=== PATIENT | male | born 1965 | race African-American/Black ===

== ENCOUNTER 2020-11-15 05:52 | Inpatient (IN) ==
[2020-11-15] MEDS ORDERED: ONDANSETRON ODT 4 MG TABLET PO STA (06:26)
[2020-11-15] MEDS ORDERED: ONDANSETRON ODT 4 MG TABLET PO ONE (06:28)
[2020-11-15 07:56] LABS: Basophils % 0.5 % (0.0-0.8); Eosinophils # 0.3 10*3/uL (0.0-0.87); Eosinophils % 6.7 % (0.00-10.9); Immature Granulocytes % 0.3 %; Immature Granulocytes Absolute 0.01 #; Lymphocytes # 0.4 10*3/uL (1.4-4.0); Mean Corpuscular HGB Conc 32.3 GM/DL (32-36); Mean Corpuscular Volume 87.2 FL (87-102); Mean Platelet Volume 11.9 FL (9.6-12.0); Monocytes % 6.4 % (1.7-12.7); Neutrophils % 75.1 % (38.7-73.9); Platelet Count 136 T/CUMM (130-400); Red Blood Count 1.88 MC/CUMM (3.8-5.5); Red Cell Distribution Width 15.4 % (9.3-17.3); White Blood Count 3.9 T/CUMM (4-12)
[2020-11-15 08:05] LABS: Hemoglobin 5.3 GM/DL (14.0-18.0)
[2020-11-15 08:06] LABS: Hematocrit 16.4 VOL% (42.0-52.0)
[2020-11-15 08:09] LABS: Calcium 8.4 MG/DL (8.5-10.1); Osmolality,Calculated 295.4 MOS/KG (273-304)
[2020-11-15 08:18] LABS: Hypochromasia 2+; Microcytosis 1+; Ovalocytes Slight; Platelet Estimate Normal
[2020-11-15] MEDS ORDERED: GLUCAGON 1 MG VIAL IM PRN (09:13)
[2020-11-15] MEDS ORDERED: DEXTROSE 50% 25 GM/50 ML VIAL IV PRN (09:13)
[2020-11-15] MEDS ORDERED: ACETAMINOPHEN 325 MG TABLET PO PRN (09:13)
[2020-11-15] MEDS ORDERED: SODIUM CHLORIDE 0.9% 1,000 ML IV PRN (09:15)
[2020-11-15] MEDS ORDERED: DOCUSATE SODIUM 100 MG CAPSULE PO PRN (09:15)
[2020-11-15] MEDS ORDERED: INFLUENZA VIRUS VACCINE 0.5 ML SYRINGE IM ONE (13:56)
[2020-11-15 13:58] LABS: Basophils % 0.3 % (0.0-0.8); Eosinophils # 0.3 10*3/uL (0.0-0.87); Eosinophils % 7.6 % (0.00-10.9); Hematocrit 19.1 VOL% (42.0-52.0); Immature Granulocytes % 0.6 %; Immature Granulocytes Absolute 0.02 #; Lymphocytes # 0.4 10*3/uL (1.4-4.0); Lymphocytes % 11.6 % (21.2-54.2); Mean Corpuscular HGB Conc 31.4 GM/DL (32-36); Mean Corpuscular Volume 90.1 FL (87-102); Monocytes % 5.5 % (1.7-12.7); Neutrophils % 74.4 % (38.7-73.9); Platelet Count 149 T/CUMM (130-400); Red Blood Count 2.12 MC/CUMM (3.8-5.5); Red Cell Distribution Width 15.1 % (9.3-17.3); White Blood Count 3.3 T/CUMM (4-12)
[2020-11-15 14:57] LABS: Sedimentation Rate-Westergren 92 MM/HR (0-20)
[2020-11-15] MEDS: SEVELAMER CARBONATE 800 MG TABLET PO SCH ×2 (17:12→17:14)
[2020-11-15] MEDS: PARoxetine 20 MG TABLET PO SCH (17:12)
[2020-11-15 18:20] LABS: Folate 4.31 NG/ML (5.38-24.0); Vitamin B12 576 PG/ML (211-911)
[2020-11-15 20:10] LABS: Hematocrit 26.2 VOL% (42.0-52.0)
[2020-11-15 20:11] LABS: Hemoglobin 8.7 GM/DL (14.0-18.0)
[2020-11-15] MEDS: LABETALOL 200 MG TABLET PO SCH (20:37)
[2020-11-15] MEDS: DIVALPROEX 500 MG TABLET PO SCH (20:37)
[2020-11-15] MEDS: amLODIPine 5 MG TABLET PO SCH (20:37)
[2020-11-15] MEDS: VANCOMYCIN 50 MG/ML 60 ML/BOTTLE PO SCH (23:34)
[2020-11-16] MEDS: VANCOMYCIN 50 MG/ML 60 ML/BOTTLE PO SCH ×4 (05:20→23:07)
[2020-11-16 05:39] LABS: Basophils % 0.6 % (0.0-0.8); Eosinophils # 0.2 10*3/uL (0.0-0.87); Hemoglobin 7.9 GM/DL (14.0-18.0); Immature Granulocytes % 0.6 %; Immature Granulocytes Absolute 0.02 #; Lymphocytes # 0.7 10*3/uL (1.4-4.0); Lymphocytes % 19.8 % (21.2-54.2); Mean Corpuscular HGB Conc 32.9 GM/DL (32-36); Mean Corpuscular Volume 86.6 FL (87-102); Mean Platelet Volume 11.9 FL (9.6-12.0); Monocytes % 12.8 % (1.7-12.7); Neutrophils % 59.2 % (38.7-73.9); Platelet Count 138 T/CUMM (130-400); Red Blood Count 2.77 MC/CUMM (3.8-5.5); Red Cell Distribution Width 14.1 % (9.3-17.3); White Blood Count 3.3 T/CUMM (4-12)
[2020-11-16 08:40] LABS: Hemoglobin A1 (Alkaline) 97.3 % (96.5-98.5); Hemoglobin A2 (Alkaline) 2.7 % (1.5-3.5)
[2020-11-16] MEDS ORDERED: ASPIRIN EC 81 MG TABLET PO SCH (09:00)
[2020-11-16] MEDS: DIVALPROEX 500 MG TABLET PO SCH ×2 (09:31→21:08)
[2020-11-16] MEDS: LABETALOL 200 MG TABLET PO SCH ×2 (09:31→21:08)
[2020-11-16] MEDS: SEVELAMER CARBONATE 800 MG TABLET PO SCH ×3 (09:31→17:06)
[2020-11-16] MEDS: amLODIPine 5 MG TABLET PO SCH ×2 (09:31→21:08)
[2020-11-16 10:15] LABS: Calcium 8.5 MG/DL (8.5-10.1); Osmolality,Calculated 280.8 MOS/KG (273-304); Potassium 3.9 MMOL/L (3.5-5.1)
[2020-11-16] MEDS: PARoxetine 20 MG TABLET PO SCH (12:01)
[2020-11-16] MEDS: FOLIC ACID 1 MG TABLET PO SCH (21:09)
[2020-11-17 05:11] LABS: Basophils % 0.6 % (0.0-0.8); Eosinophils # 0.3 10*3/uL (0.0-0.87); Eosinophils % 7.2 % (0.00-10.9); Hematocrit 22.3 VOL% (42.0-52.0); Hemoglobin 7.4 GM/DL (14.0-18.0); Immature Granulocytes % 0.3 %; Immature Granulocytes Absolute 0.01 #; Lymphocytes # 0.9 10*3/uL (1.4-4.0); Lymphocytes % 25.6 % (21.2-54.2); Mean Corpuscular HGB Conc 33.2 GM/DL (32-36); Mean Corpuscular Volume 86.4 FL (87-102); Mean Platelet Volume 11.5 FL (9.6-12.0); Monocytes % 11.8 % (1.7-12.7); Neutrophils % 54.5 % (38.7-73.9); Platelet Count 141 T/CUMM (130-400); Red Blood Count 2.58 MC/CUMM (3.8-5.5); White Blood Count 3.6 T/CUMM (4-12)
[2020-11-17] MEDS: VANCOMYCIN 50 MG/ML 60 ML/BOTTLE PO SCH ×3 (05:32→17:08)
[2020-11-17 05:35] LABS: % Iron Saturation 32.1 % (18-50); Calcium 8.6 MG/DL (8.5-10.1); Osmolality,Calculated 281.2 MOS/KG (273-304); Potassium 3.9 MMOL/L (3.5-5.1)
[2020-11-17] MEDS: DIVALPROEX 500 MG TABLET PO SCH ×2 (08:14→21:37)
[2020-11-17] MEDS: SEVELAMER CARBONATE 800 MG TABLET PO SCH ×3 (08:14→17:08)
[2020-11-17] MEDS: LABETALOL 200 MG TABLET PO SCH ×2 (08:14→21:37)
[2020-11-17] MEDS: amLODIPine 5 MG TABLET PO SCH ×2 (08:14→21:37)
[2020-11-17] MEDS ORDERED: INFLUENZA VIRUS VACCINE 0.5 ML SYRINGE IM ONE (09:00)
[2020-11-17] MEDS: PARoxetine 20 MG TABLET PO SCH (13:15)
[2020-11-17] MEDS: FOLIC ACID 1 MG TABLET PO SCH (21:37)
[2020-11-18] MEDS: VANCOMYCIN 50 MG/ML 60 ML/BOTTLE PO SCH ×3 (00:51→12:15)
[2020-11-18 06:55] LABS: Basophils % 0.8 % (0.0-0.8); Eosinophils # 0.2 10*3/uL (0.0-0.87); Eosinophils % 5.4 % (0.00-10.9); Hematocrit 23.9 VOL% (42.0-52.0); Immature Granulocytes % 0.3 %; Immature Granulocytes Absolute 0.01 #; Lymphocytes % 26.4 % (21.2-54.2); Mean Corpuscular HGB Conc 33.5 GM/DL (32-36); Mean Corpuscular Volume 86.3 FL (87-102); Mean Platelet Volume 11.7 FL (9.6-12.0); Monocytes % 10.5 % (1.7-12.7); Neutrophils % 56.6 % (38.7-73.9); Platelet Count 153 T/CUMM (130-400); Red Blood Count 2.77 MC/CUMM (3.8-5.5); White Blood Count 3.7 T/CUMM (4-12)
[2020-11-18 07:13] LABS: Calcium 8.6 MG/DL (8.5-10.1); Potassium 4.6 MMOL/L (3.5-5.1)
[2020-11-18] MEDS: LABETALOL 200 MG TABLET PO SCH (10:39)
[2020-11-18] MEDS: amLODIPine 5 MG TABLET PO SCH (10:39)
[2020-11-18] MEDS: SEVELAMER CARBONATE 800 MG TABLET PO SCH ×2 (10:39→12:14)
[2020-11-18] MEDS: DIVALPROEX 500 MG TABLET PO SCH (10:39)
[2020-11-18] MEDS: PARoxetine 20 MG TABLET PO SCH (12:14)
[2020-11-18 20:08] VITALS: BP 115/56
== END 2020-11-18 15:25 | disposition home health service (06) | DRG 811 ==
LOC: EDUNIT# → EDBD → N.ED 05:52 → N.EDINP 05:52 → N.3E 12:21
PROVIDERS: ADMIT Internal Medicine; ATTEND Internal Medicine

== ENCOUNTER 2020-12-29 09:36 | Observation (INO) ==
[2020-12-29 10:40] LABS: Basophils # 0.1 10*3/uL (0.0-0.2); Eosinophils # 0.3 10*3/uL (0.0-0.87); Eosinophils % 6.6 % (0.00-10.9); Hematocrit 33.4 VOL% (42.0-52.0); Hemoglobin 10.8 GM/DL (14.0-18.0); Lymphocytes # 1.2 10*3/uL (1.4-4.0); Lymphocytes % 24.9 % (21.2-54.2); Mean Corpuscular HGB Conc 32.3 GM/DL (32-36); Mean Corpuscular Volume 93.8 FL (87-102); Mean Platelet Volume 10.5 FL (9.6-12.0); Monocytes % 7.6 % (1.7-12.7); Neutrophils % 59.5 % (38.7-73.9); Platelet Count 172 T/CUMM (130-400); Red Blood Count 3.56 MC/CUMM (3.8-5.5); Red Cell Distribution Width 18.2 % (9.3-17.3)
[2020-12-29 10:58] LABS: Calcium 9.4 MG/DL (8.5-10.1); Osmolality,Calculated 293.3 MOS/KG (273-304); Potassium 3.7 MMOL/L (3.5-5.1)
[2020-12-29] MEDS ORDERED: ACETAMINOPHEN 325 MG TABLET PO PRN (13:50)
[2020-12-29] MEDS ORDERED: DEXTROSE 50% 25 GM/50 ML VIAL IV PRN (13:50)
[2020-12-29] MEDS ORDERED: ONDANSETRON 4 MG/2 ML VIAL IV PRN (13:50)
[2020-12-29] MEDS ORDERED: GLUCAGON 1 MG VIAL IM PRN (13:50)
[2020-12-29] MEDS ORDERED: HEPARIN 5,000 UNIT/1 ML VIAL SUBCUT SCH (14:00)
[2020-12-29] MEDS ORDERED: ceFAZolin 2,000 MG/50 ML DUPLEX IV ONE (15:48)
[2020-12-29] MEDS ORDERED: levETIRAcetam 500 MG TABLET PO PRN (18:20)
[2020-12-29] MEDS: amLODIPine 5 MG TABLET PO SCH (21:32)
[2020-12-29] MEDS: DIVALPROEX 500 MG TABLET PO SCH (21:32)
[2020-12-29] MEDS: LABETALOL 200 MG TABLET PO SCH (21:32)
[2020-12-30 05:29] LABS: Basophils # 0.1 10*3/uL (0.0-0.2); Basophils % 1.2 % (0.0-0.8); Eosinophils # 0.3 10*3/uL (0.0-0.87); Eosinophils % 5.9 % (0.00-10.9); Hematocrit 33.1 VOL% (42.0-52.0); Hemoglobin 10.4 GM/DL (14.0-18.0); Immature Granulocytes % 0.4 %; Immature Granulocytes Absolute 0.02 #; Lymphocytes # 1.2 10*3/uL (1.4-4.0); Lymphocytes % 23.6 % (21.2-54.2); Mean Corpuscular HGB Conc 31.4 GM/DL (32-36); Mean Corpuscular Volume 93.8 FL (87-102); Mean Platelet Volume 10.8 FL (9.6-12.0); Monocytes % 8.1 % (1.7-12.7); Neutrophils % 60.8 % (38.7-73.9); Platelet Count 170 T/CUMM (130-400); Red Blood Count 3.53 MC/CUMM (3.8-5.5); Red Cell Distribution Width 17.9 % (9.3-17.3); White Blood Count 5.1 T/CUMM (4-12)
[2020-12-30 05:45] LABS: Calcium 8.8 MG/DL (8.5-10.1); Osmolality,Calculated 297.3 MOS/KG (273-304); Potassium 4.1 MMOL/L (3.5-5.1)
[2020-12-30] MEDS ORDERED: BUPIVACAINE MPF 0.25% 30 ML VIAL ONE (06:33)
[2020-12-30] MEDS ORDERED: HEPARIN 5,000 UNIT/1 ML VIAL ONE (06:33)
[2020-12-30] MEDS ORDERED: LIDOCAINE 1%/EPI INJ 20 ML VIAL ONE (06:34)
[2020-12-30] MEDS ORDERED: ETOMIDATE 40 MG/20 ML VIAL IV ONE (07:18)
[2020-12-30] MEDS ORDERED: LIDOCAINE 2% 5 ML VIAL ONE (07:18)
[2020-12-30] MEDS ORDERED: ePHEDrine 50 MG/ML VIAL ONE (08:04)
[2020-12-30] MEDS ORDERED: ceFAZolin 1,000 MG VIAL ONE (08:18)
[2020-12-30] MEDS ORDERED: propofoL 200 MG/20 ML VIAL IV ONE (08:18)
[2020-12-30] MEDS ORDERED: PHENYLEPHRINE 1 MG/10 ML SYRINGE IV ONE (09:03)
[2020-12-30] MEDS ORDERED: CALCIUM CHLORIDE 1,000 MG/10 ML VIAL IV ONE (09:08)
[2020-12-30] MEDS ORDERED: SODIUM CHLORIDE 0.9% 500 ML IV ONE (09:08)
[2020-12-30] MEDS ORDERED: SEVOFLURANE 1 UNIT/15 MINUTE INH ONE (09:20)
[2020-12-30] MEDS: PANTOPRAZOLE 40 MG TABLET PO SCH (10:53)
[2020-12-30] MEDS: ASPIRIN EC 81 MG TABLET PO SCH (10:53)
[2020-12-30] MEDS: LABETALOL 200 MG TABLET PO SCH ×2 (11:10→23:18)
[2020-12-30] MEDS: amLODIPine 5 MG TABLET PO SCH ×2 (11:10→23:18)
[2020-12-30] MEDS: DIVALPROEX 500 MG TABLET PO SCH ×2 (11:10→23:17)
[2020-12-30] MEDS: levETIRAcetam 500 MG TABLET PO SCH (11:10)
[2020-12-30] MEDS ORDERED: HEPARIN 10,000 UNIT/10 ML VIAL IV PRN (13:54)
[2020-12-31 07:59] LABS: Basophils # 0.1 10*3/uL (0.0-0.2); Basophils % 0.9 % (0.0-0.8); Eosinophils # 0.4 10*3/uL (0.0-0.87); Eosinophils % 6.3 % (0.00-10.9); Hematocrit 32.1 VOL% (42.0-52.0); Hemoglobin 10.5 GM/DL (14.0-18.0); Immature Granulocytes % 0.5 %; Immature Granulocytes Absolute 0.03 #; Lymphocytes # 0.8 10*3/uL (1.4-4.0); Lymphocytes % 13.9 % (21.2-54.2); Mean Corpuscular HGB Conc 32.7 GM/DL (32-36); Mean Corpuscular Volume 93.3 FL (87-102); Mean Platelet Volume 10.8 FL (9.6-12.0); Monocytes % 8.7 % (1.7-12.7); Neutrophils % 69.7 % (38.7-73.9); Platelet Count 150 T/CUMM (130-400); Red Blood Count 3.44 MC/CUMM (3.8-5.5); Red Cell Distribution Width 18.1 % (9.3-17.3); White Blood Count 5.8 T/CUMM (4-12)
[2020-12-31 08:20] LABS: Calcium 8.6 MG/DL (8.5-10.1); Osmolality,Calculated 278.1 MOS/KG (273-304); Potassium 4.7 MMOL/L (3.5-5.1)
[2020-12-31] MEDS: ASPIRIN EC 81 MG TABLET PO SCH (09:34)
[2020-12-31] MEDS: DIVALPROEX 500 MG TABLET PO SCH (09:34)
[2020-12-31] MEDS: amLODIPine 5 MG TABLET PO SCH (09:34)
[2020-12-31] MEDS: PANTOPRAZOLE 40 MG TABLET PO SCH (09:34)
[2020-12-31] MEDS: LABETALOL 200 MG TABLET PO SCH (09:34)
[2020-12-31] MEDS: levETIRAcetam 500 MG TABLET PO SCH (09:34)
[2020-12-31] MEDS ORDERED: hydrALAZINE 20 MG/1 ML VIAL IV PRN (11:02)
[2020-12-31 11:48] VITALS: BP 182/97
== END 2020-12-31 14:20 | disposition home health service (06) ==
LOC: EDBD → EDUNIT# → N.ED 09:36 → N.EDINP 09:36 → SUATTDRO 13:09 → N.3E 17:40
PROVIDERS: ADMIT Internal Medicine; ATTEND Internal Medicine
PROC: VAVDCFI (2020-12-30 07:48)

== ENCOUNTER 2021-09-04 02:15 | Inpatient (IN) ==
[2021-09-04] MEDS ORDERED: DEXTROSE 10% 250 ML BAG IV PRN (07:30)
[2021-09-04] MEDS ORDERED: GLUCAGON 1 MG VIAL IM PRN (07:30)
[2021-09-04] MEDS ORDERED: methylPREDNISolone SOD SUC 125 MG/2 ML VIAL IV ONE (08:06)
[2021-09-04 08:10] LABS: Arterial Base Excess iSTAT 4 MMOL/L (-2.5-2.5); Arterial Bicarbonate iSTAT 29.1 MMOL/L (20-26); Arterial O2 Saturation iSTAT 97 % (95-100); Arterial PCO2 iSTAT 43 MM HG (35-48); Arterial PO2 iSTAT 91 MM HG (80-95); Arterial Total CO2 iSTAT 30 MMO/L (23-27); Arterial pH iSTAT 7.436 (7.35-7.45)
[2021-09-04 08:24] LABS: Basophils % 0.4 % (0.0-0.8); Hematocrit 22.7 VOL% (42.0-52.0); Hemoglobin 7.7 GM/DL (14.0-18.0); Immature Granulocytes % 0.9 %; Immature Granulocytes Absolute 0.05 #; Lymphocytes # 0.5 10*3/uL (1.4-4.0); Lymphocytes % 8.5 % (21.2-54.2); Mean Corpuscular HGB Conc 33.9 GM/DL (32-36); Mean Corpuscular Volume 86.3 FL (87-102); Mean Platelet Volume 11.3 FL (9.6-12.0); Monocytes # 0.1 10*3/uL (0.11-0.8); Monocytes % 1.9 % (1.7-12.7); Neutrophils % 88.3 % (38.7-73.9); Platelet Count 159 T/CUMM (130-400); Red Blood Count 2.63 MC/CUMM (3.8-5.5); Red Cell Distribution Width 14.8 % (9.3-17.3); White Blood Count 5.7 T/CUMM (4-12)
[2021-09-04] MEDS: hydrALAZINE 20 MG/1 ML VIAL IV PRN (08:30)
[2021-09-04] MEDS: INSULIN LISPRO 100 UNIT/ML SUBCUT SCH ×4 (08:31→21:17)
[2021-09-04 08:34] LABS: PT Patient Result 10.9 SECS (10.5-12.0)
[2021-09-04 08:52] LABS: Albumin 3.1 G/DL (3.4-5.0); Bilirubin,Total 0.4 MG/DL (0.20-1.00); Calcium 9.7 MG/DL (8.5-10.1); Osmolality,Calculated 278.8 MOS/KG (273-304); Potassium 3.7 MMOL/L (3.5-5.1); Total Protein 7.2 G/DL (6.4-8.2)
[2021-09-04] MEDS: CLINDAMYCIN INJ 300 MG/50 ML PREMIX IV SCH ×2 (09:34→16:41)
[2021-09-04] MEDS: PANTOPRAZOLE 40 MG VIAL IV SCH (09:36)
[2021-09-04] MEDS: MORPHINE 2 MG/1 ML SYRINGE IV PRN ×2 (09:37→20:45)
[2021-09-04] MEDS ORDERED: cloNIDine 0.1 MG/24 HR PATCH TRANSDERM SCH (11:00)
[2021-09-04] MEDS: niCARdipine INJ 25 MG in SODIUM CHLORIDE 0.9% 240 ML IV PRN ×3 (11:30→21:50)
[2021-09-04] MEDS: HEPARIN DRIP 25,000 UNITS/500 ML PREMIX IV SCH (12:24)
[2021-09-04] MEDS ORDERED: HEPARIN/NACL 0.9% 2 UNITS/ML 4,000 UNIT/2,000 ML BAG IV ONE (13:21)
[2021-09-04] MEDS ORDERED: DIAZEPAM 5 MG TABLET PO ONE (13:37)
[2021-09-04] MEDS: SODIUM CHLORIDE 0.45% 1,000 ML IV SCH (13:59)
[2021-09-04] MEDS: methylPREDNISolone SOD SUC 40 MG/1 ML VIAL IV SCH ×2 (14:13→23:05)
[2021-09-04 18:40] LABS: Partial Thromboplastin Time 63.2 SECS (23.7-32.9)
[2021-09-05] MEDS: CLINDAMYCIN INJ 300 MG/50 ML PREMIX IV SCH ×3 (00:01→17:29)
[2021-09-05] MEDS: niCARdipine INJ 25 MG in SODIUM CHLORIDE 0.9% 240 ML IV PRN ×5 (00:05→16:30)
[2021-09-05] MEDS: methylPREDNISolone SOD SUC 40 MG/1 ML VIAL IV SCH ×2 (05:49→14:31)
[2021-09-05 06:21] LABS: Basophils % 0.2 % (0.0-0.8); Hematocrit 23.8 VOL% (42.0-52.0); Hemoglobin 8.1 GM/DL (14.0-18.0); Immature Granulocytes % 0.8 %; Immature Granulocytes Absolute 0.05 #; Lymphocytes # 0.5 10*3/uL (1.4-4.0); Lymphocytes % 6.8 % (21.2-54.2); Mean Corpuscular Volume 86.5 FL (87-102); Mean Platelet Volume 10.6 FL (9.6-12.0); Monocytes # 0.2 10*3/uL (0.11-0.8); Monocytes % 3.6 % (1.7-12.7); Neutrophils % 88.6 % (38.7-73.9); Platelet Count 143 T/CUMM (130-400); Red Blood Count 2.75 MC/CUMM (3.8-5.5); White Blood Count 6.6 T/CUMM (4-12)
[2021-09-05 06:38] LABS: Risk Ratio 1.66; VLDL Cholesterol 12.4 MG/DL
[2021-09-05 06:39] LABS: Bilirubin,Total 0.4 MG/DL (0.20-1.00); Calcium 9.7 MG/DL (8.5-10.1); Osmolality,Calculated 281.1 MOS/KG (273-304); Potassium 4.2 MMOL/L (3.5-5.1); Total Protein 7.1 G/DL (6.4-8.2)
[2021-09-05] MEDS: MORPHINE 2 MG/1 ML SYRINGE IV PRN (07:56)
[2021-09-05] MEDS: INSULIN LISPRO 100 UNIT/ML SUBCUT SCH ×4 (08:05→22:54)
[2021-09-05] MEDS: FOLIC ACID 1 MG TABLET PO SCH (08:19)
[2021-09-05] MEDS: ASPIRIN EC 81 MG TABLET PO SCH (08:19)
[2021-09-05] MEDS: DIVALPROEX 500 MG TABLET PO SCH ×2 (08:19→22:54)
[2021-09-05] MEDS: amLODIPine 5 MG TABLET PO SCH (08:19)
[2021-09-05] MEDS: DIVALPROEX 250 MG TABLET PO SCH ×2 (08:19→22:55)
[2021-09-05] MEDS: SEVELAMER CARBONATE 800 MG TABLET PO SCH ×3 (08:19→17:28)
[2021-09-05] MEDS: PANTOPRAZOLE 40 MG VIAL IV SCH (08:20)
[2021-09-05] MEDS: levETIRAcetam 500 MG TABLET PO SCH (08:22)
[2021-09-05] MEDS: LABETALOL 200 MG TABLET PO SCH ×2 (11:11→20:39)
[2021-09-05] MEDS: PARoxetine 20 MG TABLET PO SCH (11:14)
[2021-09-05] MEDS: HEPARIN DRIP 25,000 UNITS/500 ML PREMIX IV SCH (14:26)
[2021-09-05] MEDS: SODIUM CHLORIDE 0.45% 1,000 ML IV SCH (15:37)
[2021-09-05] MEDS: hydrALAZINE 20 MG/1 ML VIAL IV PRN (17:33)
[2021-09-05] MEDS: APIXABAN 5 MG TABLET PO SCH (20:39)
[2021-09-06] MEDS: hydrALAZINE 20 MG/1 ML VIAL IV PRN ×3 (00:22→16:53)
[2021-09-06] MEDS ORDERED: diphenhydrAMINE 50 MG/1 ML VIAL IV ONE (01:07)
[2021-09-06] MEDS: CLINDAMYCIN INJ 300 MG/50 ML PREMIX IV SCH ×3 (01:49→16:53)
[2021-09-06] MEDS: methylPREDNISolone SOD SUC 40 MG/1 ML VIAL IV SCH ×2 (01:49→13:49)
[2021-09-06] MEDS ORDERED: hydrALAZINE 20 MG/1 ML VIAL IV ONE (04:22)
[2021-09-06] MEDS: INSULIN LISPRO 100 UNIT/ML SUBCUT SCH ×4 (07:49→20:21)
[2021-09-06] MEDS: levETIRAcetam 500 MG TABLET PO SCH (08:11)
[2021-09-06] MEDS: LABETALOL 200 MG TABLET PO SCH ×2 (08:11→20:20)
[2021-09-06] MEDS: ASPIRIN EC 81 MG TABLET PO SCH (08:11)
[2021-09-06] MEDS: SEVELAMER CARBONATE 800 MG TABLET PO SCH ×3 (08:11→17:28)
[2021-09-06] MEDS: DIVALPROEX 500 MG TABLET PO SCH ×2 (08:12→20:20)
[2021-09-06] MEDS: amLODIPine 5 MG TABLET PO SCH (08:12)
[2021-09-06] MEDS: APIXABAN 5 MG TABLET PO SCH ×2 (08:12→20:20)
[2021-09-06] MEDS: FOLIC ACID 1 MG TABLET PO SCH (08:12)
[2021-09-06] MEDS: DIVALPROEX 250 MG TABLET PO SCH ×2 (08:12→20:20)
[2021-09-06 08:18] LABS: Calcium 9.9 MG/DL (8.5-10.1); Osmolality,Calculated 274.5 MOS/KG (273-304); Potassium 4.7 MMOL/L (3.5-5.1)
[2021-09-06] MEDS: PARoxetine 20 MG TABLET PO SCH (13:50)
[2021-09-06] MEDS ORDERED: amLODIPine 10 MG TABLET PO STA (17:41)
[2021-09-07] MEDS: CLINDAMYCIN INJ 300 MG/50 ML PREMIX IV SCH ×3 (01:35→17:47)
[2021-09-07] MEDS: methylPREDNISolone SOD SUC 40 MG/1 ML VIAL IV SCH ×2 (02:13→17:40)
[2021-09-07] MEDS: INSULIN LISPRO 100 UNIT/ML SUBCUT SCH ×4 (07:59→22:05)
[2021-09-07] MEDS: APIXABAN 5 MG TABLET PO SCH ×2 (08:40→21:07)
[2021-09-07] MEDS: levETIRAcetam 500 MG TABLET PO SCH (08:40)
[2021-09-07] MEDS: DIVALPROEX 500 MG TABLET PO SCH ×2 (08:40→21:07)
[2021-09-07] MEDS: FOLIC ACID 1 MG TABLET PO SCH (08:40)
[2021-09-07] MEDS: SEVELAMER CARBONATE 800 MG TABLET PO SCH ×3 (08:40→17:40)
[2021-09-07] MEDS: LABETALOL 200 MG TABLET PO SCH ×2 (08:41→21:07)
[2021-09-07] MEDS: amLODIPine 10 MG TABLET PO SCH (08:41)
[2021-09-07] MEDS: ASPIRIN EC 81 MG TABLET PO SCH (08:41)
[2021-09-07] MEDS: DIVALPROEX 250 MG TABLET PO SCH ×2 (08:41→21:07)
[2021-09-07 08:57] LABS: Basophils % 0.2 % (0.0-0.8); Eosinophils % 0.1 % (0.00-10.9); Hematocrit 23.8 VOL% (42.0-52.0); Hemoglobin 7.8 GM/DL (14.0-18.0); Immature Granulocytes % 1.2 %; Immature Granulocytes Absolute 0.13 #; Lymphocytes # 1.2 10*3/uL (1.4-4.0); Lymphocytes % 11.4 % (21.2-54.2); Mean Corpuscular HGB Conc 32.8 GM/DL (32-36); Mean Corpuscular Volume 87.5 FL (87-102); Mean Platelet Volume 11.6 FL (9.6-12.0); Monocytes # 0.7 10*3/uL (0.11-0.8); Monocytes % 6.6 % (1.7-12.7); Neutrophils % 80.5 % (38.7-73.9); Platelet Count 159 T/CUMM (130-400); Red Blood Count 2.72 MC/CUMM (3.8-5.5); Red Cell Distribution Width 14.6 % (9.3-17.3); White Blood Count 10.9 T/CUMM (4-12)
[2021-09-07 09:15] LABS: Calcium 10.3 MG/DL (8.5-10.1); Osmolality,Calculated 285.2 MOS/KG (273-304)
[2021-09-07] MEDS: PARoxetine 20 MG TABLET PO SCH (11:38)
[2021-09-07] MEDS: hydrALAZINE 20 MG/1 ML VIAL IV PRN ×2 (11:38→18:12)
[2021-09-07] MEDS ORDERED: HEPARIN 10,000 UNIT/10 ML VIAL IV SCH (17:00)
[2021-09-08] MEDS: CLINDAMYCIN INJ 300 MG/50 ML PREMIX IV SCH ×3 (00:38→17:17)
[2021-09-08 06:13] LABS: Basophils % 0.2 % (0.0-0.8); Eosinophils % 0.1 % (0.00-10.9); Hematocrit 23.4 VOL% (42.0-52.0); Hemoglobin 7.7 GM/DL (14.0-18.0); Immature Granulocytes % 1.1 %; Immature Granulocytes Absolute 0.09 #; Lymphocytes # 0.8 10*3/uL (1.4-4.0); Lymphocytes % 9.9 % (21.2-54.2); Mean Corpuscular HGB Conc 32.9 GM/DL (32-36); Mean Corpuscular Volume 88.6 FL (87-102); Mean Platelet Volume 11.9 FL (9.6-12.0); Monocytes # 0.4 10*3/uL (0.11-0.8); Monocytes % 4.6 % (1.7-12.7); Neutrophils % 84.1 % (38.7-73.9); Platelet Count 163 T/CUMM (130-400); Red Blood Count 2.64 MC/CUMM (3.8-5.5); Red Cell Distribution Width 14.5 % (9.3-17.3); White Blood Count 8.1 T/CUMM (4-12)
[2021-09-08 06:24] LABS: Calcium 9.4 MG/DL (8.5-10.1); Osmolality,Calculated 278.4 MOS/KG (273-304); Potassium 4.8 MMOL/L (3.5-5.1)
[2021-09-08] MEDS: INSULIN LISPRO 100 UNIT/ML SUBCUT SCH ×4 (08:18→20:53)
[2021-09-08] MEDS: DIVALPROEX 250 MG TABLET PO SCH ×2 (08:59→20:52)
[2021-09-08] MEDS: SEVELAMER CARBONATE 800 MG TABLET PO SCH ×3 (08:59→17:17)
[2021-09-08] MEDS: FOLIC ACID 1 MG TABLET PO SCH (09:00)
[2021-09-08] MEDS: APIXABAN 5 MG TABLET PO SCH ×2 (09:00→20:53)
[2021-09-08] MEDS: levETIRAcetam 500 MG TABLET PO SCH (09:00)
[2021-09-08] MEDS: DIVALPROEX 500 MG TABLET PO SCH ×2 (09:00→20:53)
[2021-09-08] MEDS: ASPIRIN EC 81 MG TABLET PO SCH (09:00)
[2021-09-08] MEDS: amLODIPine 10 MG TABLET PO SCH (09:00)
[2021-09-08] MEDS: LABETALOL 200 MG TABLET PO SCH ×2 (09:01→20:53)
[2021-09-08] MEDS: PARoxetine 20 MG TABLET PO SCH (12:33)
[2021-09-08] MEDS: hydrALAZINE 20 MG/1 ML VIAL IV PRN (12:33)
[2021-09-08] MEDS: methylPREDNISolone SOD SUC 40 MG/1 ML VIAL IV SCH (15:06)
[2021-09-09] MEDS: CLINDAMYCIN INJ 300 MG/50 ML PREMIX IV SCH ×3 (01:08→17:23)
[2021-09-09 05:46] LABS: Basophils % 0.3 % (0.0-0.8); Eosinophils # 0.1 10*3/uL (0.0-0.87); Eosinophils % 0.9 % (0.00-10.9); Hematocrit 21.2 VOL% (42.0-52.0); Immature Granulocytes Absolute 0.07 #; Lymphocytes # 1.2 10*3/uL (1.4-4.0); Lymphocytes % 16.8 % (21.2-54.2); Monocytes # 0.4 10*3/uL (0.11-0.8); Platelet Count 150 T/CUMM (130-400); Red Blood Count 2.41 MC/CUMM (3.8-5.5); Red Cell Distribution Width 14.5 % (9.3-17.3)
[2021-09-09 05:59] LABS: Calcium 9.4 MG/DL (8.5-10.1); Osmolality,Calculated 282.7 MOS/KG (273-304); Potassium 4.8 MMOL/L (3.5-5.1)
[2021-09-09] MEDS ORDERED: SODIUM CHLORIDE 0.9% 1,000 ML IV PRN (07:37)
[2021-09-09] MEDS: DIVALPROEX 250 MG TABLET PO SCH ×2 (08:32→21:42)
[2021-09-09] MEDS: INSULIN LISPRO 100 UNIT/ML SUBCUT SCH ×3 (08:32→15:43)
[2021-09-09] MEDS: FOLIC ACID 1 MG TABLET PO SCH (08:32)
[2021-09-09] MEDS: LABETALOL 200 MG TABLET PO SCH ×2 (08:32→21:42)
[2021-09-09] MEDS: amLODIPine 10 MG TABLET PO SCH (08:32)
[2021-09-09] MEDS: SEVELAMER CARBONATE 800 MG TABLET PO SCH ×3 (08:32→17:23)
[2021-09-09] MEDS: DIVALPROEX 500 MG TABLET PO SCH ×2 (08:33→21:42)
[2021-09-09] MEDS: levETIRAcetam 500 MG TABLET PO SCH (08:33)
[2021-09-09] MEDS: ASPIRIN EC 81 MG TABLET PO SCH (08:33)
[2021-09-09] MEDS: APIXABAN 5 MG TABLET PO SCH ×2 (08:33→21:44)
[2021-09-09] MEDS: PARoxetine 20 MG TABLET PO SCH (11:36)
[2021-09-09 13:10] LABS: % Iron Saturation 81.2 % (18-50)
[2021-09-09 14:50] LABS: Folate 19.92 NG/ML (5.38-24.0)
[2021-09-09] MEDS: methylPREDNISolone SOD SUC 40 MG/1 ML VIAL IV SCH (15:04)
[2021-09-10] MEDS: INSULIN LISPRO 100 UNIT/ML SUBCUT SCH ×5 (01:09→21:03)
[2021-09-10] MEDS: CLINDAMYCIN INJ 300 MG/50 ML PREMIX IV SCH ×3 (01:11→21:01)
[2021-09-10 05:06] LABS: Basophils % 0.4 % (0.0-0.8); Eosinophils # 0.1 10*3/uL (0.0-0.87); Eosinophils % 1.2 % (0.00-10.9); Hematocrit 20.9 VOL% (42.0-52.0); Hemoglobin 6.9 GM/DL (14.0-18.0); Immature Granulocytes % 0.9 %; Immature Granulocytes Absolute 0.07 #; Lymphocytes # 1.2 10*3/uL (1.4-4.0); Mean Corpuscular Volume 87.4 FL (87-102); Mean Platelet Volume 11.6 FL (9.6-12.0); Monocytes # 0.4 10*3/uL (0.11-0.8); Monocytes % 4.9 % (1.7-12.7); Neutrophils % 76.6 % (38.7-73.9); Platelet Count 146 T/CUMM (130-400); Red Blood Count 2.39 MC/CUMM (3.8-5.5); Red Cell Distribution Width 14.5 % (9.3-17.3); White Blood Count 7.8 T/CUMM (4-12)
[2021-09-10 05:24] LABS: Calcium 9.5 MG/DL (8.5-10.1); Osmolality,Calculated 294.5 MOS/KG (273-304); Potassium 5.4 MMOL/L (3.5-5.1)
[2021-09-10] MEDS: SEVELAMER CARBONATE 800 MG TABLET PO SCH ×3 (07:41→17:38)
[2021-09-10] MEDS: LABETALOL 200 MG TABLET PO SCH ×2 (12:47→21:02)
[2021-09-10] MEDS: APIXABAN 5 MG TABLET PO SCH ×2 (12:47→21:02)
[2021-09-10] MEDS: ASPIRIN EC 81 MG TABLET PO SCH (12:48)
[2021-09-10] MEDS: levETIRAcetam 500 MG TABLET PO SCH (12:48)
[2021-09-10] MEDS: amLODIPine 10 MG TABLET PO SCH (12:48)
[2021-09-10] MEDS: DIVALPROEX 250 MG TABLET PO SCH ×2 (12:48→21:02)
[2021-09-10] MEDS: FOLIC ACID 1 MG TABLET PO SCH (12:48)
[2021-09-10] MEDS: DIVALPROEX 500 MG TABLET PO SCH ×2 (12:49→21:02)
[2021-09-10] MEDS: PARoxetine 20 MG TABLET PO SCH (12:51)
[2021-09-10] MEDS: methylPREDNISolone SOD SUC 40 MG/1 ML VIAL IV SCH (15:16)
[2021-09-11] MEDS: CLINDAMYCIN INJ 300 MG/50 ML PREMIX IV SCH (05:05)
[2021-09-11 05:25] LABS: Basophils % 0.3 % (0.0-0.8); Eosinophils # 0.1 10*3/uL (0.0-0.87); Eosinophils % 2.1 % (0.00-10.9); Hematocrit 24.6 VOL% (42.0-52.0); Hemoglobin 8.2 GM/DL (14.0-18.0); Immature Granulocytes % 0.9 %; Immature Granulocytes Absolute 0.05 #; Lymphocytes # 1.1 10*3/uL (1.4-4.0); Lymphocytes % 18.3 % (21.2-54.2); Mean Corpuscular HGB Conc 33.3 GM/DL (32-36); Mean Platelet Volume 12.4 FL (9.6-12.0); Monocytes # 0.5 10*3/uL (0.11-0.8); Neutrophils % 70.4 % (38.7-73.9); Platelet Count 135 T/CUMM (130-400); Red Blood Count 2.86 MC/CUMM (3.8-5.5); Red Cell Distribution Width 14.7 % (9.3-17.3); White Blood Count 5.9 T/CUMM (4-12)
[2021-09-11 05:48] LABS: Calcium 8.9 MG/DL (8.5-10.1); Osmolality,Calculated 284.4 MOS/KG (273-304); Potassium 4.8 MMOL/L (3.5-5.1)
[2021-09-11 06:12] LABS: Calcium 8.7 MG/DL (8.5-10.1); Osmolality,Calculated 281.7 MOS/KG (273-304); Potassium 4.7 MMOL/L (3.5-5.1)
[2021-09-11] MEDS: INSULIN LISPRO 100 UNIT/ML SUBCUT SCH ×2 (07:39→12:05)
[2021-09-11] MEDS: SEVELAMER CARBONATE 800 MG TABLET PO SCH ×2 (08:26→12:23)
[2021-09-11] MEDS: levETIRAcetam 500 MG TABLET PO SCH (08:27)
[2021-09-11] MEDS: ASPIRIN EC 81 MG TABLET PO SCH (08:27)
[2021-09-11] MEDS: DIVALPROEX 500 MG TABLET PO SCH (08:27)
[2021-09-11] MEDS: APIXABAN 5 MG TABLET PO SCH (08:27)
[2021-09-11] MEDS: DIVALPROEX 250 MG TABLET PO SCH (08:27)
[2021-09-11] MEDS: LABETALOL 200 MG TABLET PO SCH (08:27)
[2021-09-11] MEDS: amLODIPine 10 MG TABLET PO SCH (08:27)
[2021-09-11] MEDS: FOLIC ACID 1 MG TABLET PO SCH (08:27)
[2021-09-11] MEDS: PARoxetine 20 MG TABLET PO SCH (12:22)
[2021-09-11 12:27] VITALS: BP 165/95
[2021-09-11] MEDS: methylPREDNISolone SOD SUC 40 MG/1 ML VIAL IV SCH (14:45)
== END 2021-09-11 15:47 | disposition home or self-care (01) | DRG 252 ==
LOC: N.3E → SUATTDRO 05:53 → N.ICU 08:11 → N.3E 09-06 19:21
PROVIDERS: ADMIT Internal Medicine; ATTEND Internal Medicine

== ENCOUNTER 2021-09-15 19:13 | Inpatient (IN) ==
[2021-09-15 20:25] LABS: Basophils % 0.1 % (0.0-0.8); Eosinophils % 0.1 % (0.00-10.9); Hematocrit 22.2 VOL% (42.0-52.0); Hemoglobin 7.3 GM/DL (14.0-18.0); Immature Granulocytes % 1.2 %; Immature Granulocytes Absolute 0.08 #; Lymphocytes # 0.7 10*3/uL (1.4-4.0); Lymphocytes % 9.6 % (21.2-54.2); Mean Corpuscular HGB Conc 32.9 GM/DL (32-36); Mean Corpuscular Volume 88.4 FL (87-102); Mean Platelet Volume 12.8 FL (9.6-12.0); Monocytes # 0.4 10*3/uL (0.11-0.8); Monocytes % 5.3 % (1.7-12.7); Neutrophils % 83.7 % (38.7-73.9); Platelet Count 117 T/CUMM (130-400); Red Blood Count 2.51 MC/CUMM (3.8-5.5); Red Cell Distribution Width 14.7 % (9.3-17.3); White Blood Count 6.7 T/CUMM (4-12)
[2021-09-15 21:12] LABS: Albumin 3.1 G/DL (3.4-5.0); Bilirubin,Total 0.4 MG/DL (0.20-1.00); Calcium 9.8 MG/DL (8.5-10.1); Osmolality,Calculated 287.5 MOS/KG (273-304); Total Protein 6.5 G/DL (6.4-8.2)
[2021-09-15] MEDS ORDERED: FUROSEMIDE 40 MG/4 ML VIAL IV STA (23:37)
[2021-09-15] MEDS ORDERED: ONDANSETRON 4 MG/2 ML VIAL IV PRN (23:38)
[2021-09-15] MEDS ORDERED: MORPHINE 2 MG/1 ML SYRINGE IV PRN (23:38)
[2021-09-15] MEDS ORDERED: guaiFENesin/DM ER 600-30 MG TABLET PO PRN (23:38)
[2021-09-15] MEDS ORDERED: ZALEPLON 5 MG CAPSULE PO PRN (23:38)
[2021-09-15] MEDS ORDERED: ACETAMINOPHEN 325 MG TABLET PO PRN (23:38)
[2021-09-15] MEDS ORDERED: diphenhydrAMINE CAP 25 MG CAPSULE PO PRN (23:38)
[2021-09-15] MEDS ORDERED: DEXTROSE 10% 250 ML BAG IV PRN (23:38)
[2021-09-15] MEDS ORDERED: NICOTINE 21 MG/24 HR PATCH TRANSDERM PRN (23:38)
[2021-09-16] MEDS: ALBUTEROL/IPRATROPIUM 3 ML NEB RESP TX SCH ×4 (00:44→19:35)
[2021-09-16] MEDS: HEPARIN DRIP 25,000 UNITS/500 ML PREMIX IV SCH ×2 (00:55→20:55)
[2021-09-16] MEDS: hydrALAZINE 20 MG/1 ML VIAL IV PRN (00:57)
[2021-09-16 07:20] LABS: Basophils % 0.8 % (0.0-0.8); Eosinophils # 0.1 10*3/uL (0.0-0.87); Eosinophils % 1.7 % (0.00-10.9); Hematocrit 22.8 VOL% (42.0-52.0); Hemoglobin 7.2 GM/DL (14.0-18.0); Immature Granulocytes % 0.9 %; Immature Granulocytes Absolute 0.05 #; Lymphocytes # 1.1 10*3/uL (1.4-4.0); Lymphocytes % 20.6 % (21.2-54.2); Mean Corpuscular HGB Conc 31.6 GM/DL (32-36); Mean Corpuscular Volume 90.1 FL (87-102); Monocytes # 0.4 10*3/uL (0.11-0.8); Monocytes % 7.4 % (1.7-12.7); Neutrophils % 68.6 % (38.7-73.9); Platelet Count 124 T/CUMM (130-400); Red Blood Count 2.53 MC/CUMM (3.8-5.5); Red Cell Distribution Width 14.6 % (9.3-17.3); White Blood Count 5.3 T/CUMM (4-12)
[2021-09-16 07:54] LABS: Calcium 9.9 MG/DL (8.5-10.1); Osmolality,Calculated 287.5 MOS/KG (273-304); Potassium 3.4 MMOL/L (3.5-5.1)
[2021-09-16] MEDS: DOCUSATE SODIUM 100 MG CAPSULE PO SCH ×2 (10:48→20:55)
[2021-09-16] MEDS: PANTOPRAZOLE 40 MG TABLET PO SCH (10:49)
[2021-09-16] MEDS ORDERED: methylPREDNISolone SOD SUC 40 MG/1 ML VIAL IV SCH (13:00)
[2021-09-16] MEDS: amLODIPine 10 MG TABLET PO SCH (15:13)
[2021-09-16] MEDS: DIVALPROEX 500 MG TABLET PO SCH (20:55)
[2021-09-16] MEDS: LABETALOL 200 MG TABLET PO SCH (20:55)
[2021-09-16] MEDS: methylPREDNISolone SOD SUC 40 MG/1 ML VIAL IV SCH (20:55)
[2021-09-16] MEDS: DIVALPROEX 250 MG TABLET PO SCH (20:55)
[2021-09-17] MEDS: ALBUTEROL/IPRATROPIUM 3 ML NEB RESP TX SCH ×4 (00:18→19:50)
[2021-09-17 02:17] LABS: Basophils % 0.4 % (0.0-0.8); Eosinophils % 0.4 % (0.00-10.9); Hematocrit 21.1 VOL% (42.0-52.0); Hemoglobin 6.8 GM/DL (14.0-18.0); Immature Granulocytes Absolute 0.07 #; Lymphocytes # 0.6 10*3/uL (1.4-4.0); Lymphocytes % 8.8 % (21.2-54.2); Mean Corpuscular HGB Conc 32.2 GM/DL (32-36); Mean Corpuscular Volume 87.9 FL (87-102); Mean Platelet Volume 12.7 FL (9.6-12.0); Monocytes # 0.2 10*3/uL (0.11-0.8); Monocytes % 2.2 % (1.7-12.7); Neutrophils % 87.2 % (38.7-73.9); Platelet Count 121 T/CUMM (130-400); Red Cell Distribution Width 14.5 % (9.3-17.3); White Blood Count 6.8 T/CUMM (4-12)
[2021-09-17 02:34] LABS: Calcium 9.4 MG/DL (8.5-10.1); Potassium 4.5 MMOL/L (3.5-5.1)
[2021-09-17] MEDS: hydrALAZINE 20 MG/1 ML VIAL IV PRN (04:50)
[2021-09-17] MEDS: DIVALPROEX 500 MG TABLET PO SCH ×2 (08:14→20:05)
[2021-09-17] MEDS: methylPREDNISolone SOD SUC 40 MG/1 ML VIAL IV SCH ×2 (08:14→20:05)
[2021-09-17] MEDS: LABETALOL 200 MG TABLET PO SCH ×2 (08:14→20:05)
[2021-09-17] MEDS: DIVALPROEX 250 MG TABLET PO SCH ×2 (08:14→20:05)
[2021-09-17] MEDS: amLODIPine 10 MG TABLET PO SCH (08:14)
[2021-09-17] MEDS: PANTOPRAZOLE 40 MG TABLET PO SCH (08:14)
[2021-09-17] MEDS: DOCUSATE SODIUM 100 MG CAPSULE PO SCH ×2 (08:14→20:05)
[2021-09-17] MEDS ORDERED: SODIUM CHLORIDE 0.9% 1,000 ML IV PRN (12:09)
[2021-09-17] MEDS ORDERED: HEPARIN 10,000 UNIT/10 ML VIAL IV SCH (16:30)
[2021-09-17 17:12] LABS: INR 0.9; PT Patient Result 10.5 SECS (10.5-12.0)
[2021-09-17 23:11] LABS: PT Patient Result 11.1 SECS (10.5-12.0); Partial Thromboplastin Time 93.5 SECS (23.7-32.9)
[2021-09-18] MEDS: ALBUTEROL/IPRATROPIUM 3 ML NEB RESP TX SCH ×4 (00:10→19:00)
[2021-09-18] MEDS: HEPARIN DRIP 25,000 UNITS/500 ML PREMIX IV SCH (01:00)
[2021-09-18] MEDS: hydrALAZINE 20 MG/1 ML VIAL IV PRN ×2 (05:00→13:40)
[2021-09-18 08:32] LABS: Partial Thromboplastin Time 47.2 SECS (23.7-32.9)
[2021-09-18] MEDS: DIVALPROEX 500 MG TABLET PO SCH ×2 (09:01→20:20)
[2021-09-18] MEDS: amLODIPine 10 MG TABLET PO SCH (09:01)
[2021-09-18] MEDS: LABETALOL 200 MG TABLET PO SCH ×2 (09:01→20:20)
[2021-09-18] MEDS: DIVALPROEX 250 MG TABLET PO SCH ×2 (09:01→20:20)
[2021-09-18] MEDS: PANTOPRAZOLE 40 MG TABLET PO SCH (09:01)
[2021-09-18] MEDS: DOCUSATE SODIUM 100 MG CAPSULE PO SCH ×2 (09:02→20:20)
[2021-09-18] MEDS: methylPREDNISolone SOD SUC 40 MG/1 ML VIAL IV SCH ×2 (09:17→20:20)
[2021-09-18 11:36] LABS: Hematocrit 28.3 VOL% (42.0-52.0); Hemoglobin 9.3 GM/DL (14.0-18.0)
[2021-09-18 15:47] LABS: PT Patient Result 10.9 SECS (10.5-12.0); Partial Thromboplastin Time 29.3 SECS (23.7-32.9)
[2021-09-18 22:32] LABS: PT Patient Result 11.4 SECS (10.5-12.0); Partial Thromboplastin Time 63.5 SECS (23.7-32.9)
[2021-09-19] MEDS: ALBUTEROL/IPRATROPIUM 3 ML NEB RESP TX SCH ×4 (00:25→19:20)
[2021-09-19] MEDS: HEPARIN DRIP 25,000 UNITS/500 ML PREMIX IV SCH (04:45)
[2021-09-19 06:34] LABS: Basophils # 0.1 10*3/uL (0.0-0.2); Basophils % 0.7 % (0.0-0.8); Eosinophils # 0.1 10*3/uL (0.0-0.87); Hematocrit 26.8 VOL% (42.0-52.0); Hemoglobin 8.5 GM/DL (14.0-18.0); Immature Granulocytes % 1.8 %; Immature Granulocytes Absolute 0.12 #; Lymphocytes # 1.6 10*3/uL (1.4-4.0); Lymphocytes % 23.6 % (21.2-54.2); Mean Corpuscular HGB Conc 31.7 GM/DL (32-36); Mean Corpuscular Volume 91.5 FL (87-102); Mean Platelet Volume 12.5 FL (9.6-12.0); Monocytes # 0.5 10*3/uL (0.11-0.8); Monocytes % 7.3 % (1.7-12.7); Neutrophils % 65.6 % (38.7-73.9); Platelet Count 108 T/CUMM (130-400); Red Blood Count 2.93 MC/CUMM (3.8-5.5); White Blood Count 6.7 T/CUMM (4-12)
[2021-09-19 06:43] LABS: INR 1.1; PT Patient Result 11.6 SECS (10.5-12.0); Partial Thromboplastin Time 50.7 SECS (23.7-32.9)
[2021-09-19 08:09] LABS: Calcium 9.6 MG/DL (8.5-10.1); Osmolality,Calculated 284.1 MOS/KG (273-304); Potassium 4.3 MMOL/L (3.5-5.1)
[2021-09-19] MEDS ORDERED: LIDOCAINE 1%/EPI INJ 20 ML VIAL ONE (08:29)
[2021-09-19] MEDS ORDERED: BUPIVACAINE MPF 0.25% 10 ML VIAL ONE (08:29)
[2021-09-19] MEDS ORDERED: MIDAZOLAM 2 MG/2 ML VIAL ONE (08:44)
[2021-09-19] MEDS ORDERED: fentaNYL 100 MCG/2 ML VIAL ONE (08:44)
[2021-09-19] MEDS: methylPREDNISolone SOD SUC 40 MG/1 ML VIAL IV SCH ×2 (09:00→21:18)
[2021-09-19] MEDS: DOCUSATE SODIUM 100 MG CAPSULE PO SCH ×2 (09:00→21:18)
[2021-09-19] MEDS ORDERED: hydrALAZINE 20 MG/1 ML VIAL ONE (09:02)
[2021-09-19 12:57] LABS: PT Patient Result 10.8 SECS (10.5-12.0); Partial Thromboplastin Time 28.8 SECS (23.7-32.9)
[2021-09-19] MEDS: LABETALOL 200 MG TABLET PO SCH ×2 (13:13→21:18)
[2021-09-19] MEDS: amLODIPine 10 MG TABLET PO SCH (13:13)
[2021-09-19] MEDS: DIVALPROEX 250 MG TABLET PO SCH ×2 (13:13→21:18)
[2021-09-19] MEDS: DIVALPROEX 500 MG TABLET PO SCH ×2 (13:14→21:18)
[2021-09-19] MEDS: PANTOPRAZOLE 40 MG TABLET PO SCH (15:34)
[2021-09-19] MEDS ORDERED: HEPARIN 5,000 UNIT/1 ML VIAL IV ONE (15:38)
[2021-09-20] MEDS: ALBUTEROL/IPRATROPIUM 3 ML NEB RESP TX SCH ×2 (00:20→07:20)
[2021-09-20] MEDS: HEPARIN DRIP 25,000 UNITS/500 ML PREMIX IV SCH (00:49)
[2021-09-20] MEDS: DIVALPROEX 250 MG TABLET PO SCH (09:40)
[2021-09-20] MEDS: DOCUSATE SODIUM 100 MG CAPSULE PO SCH (09:40)
[2021-09-20] MEDS: amLODIPine 10 MG TABLET PO SCH (09:40)
[2021-09-20] MEDS: DIVALPROEX 500 MG TABLET PO SCH (09:40)
[2021-09-20] MEDS: LABETALOL 200 MG TABLET PO SCH (09:47)
[2021-09-20] MEDS: methylPREDNISolone SOD SUC 40 MG/1 ML VIAL IV SCH (09:47)
[2021-09-20] MEDS: PANTOPRAZOLE 40 MG TABLET PO SCH (09:48)
[2021-09-20 12:53] VITALS: BP 189/83
== END 2021-09-20 16:32 | disposition home or self-care (01) | DRG 252 ==
LOC: N.ED 19:13 → N.TELES 23:38
PROVIDERS: ADMIT Internal Medicine; ATTEND Internal Medicine